=== PATIENT | male | born 1980 | race Caucasian/White ===

== ENCOUNTER 2023-08-23 14:46 | Inpatient (IN) | payer OTHER ==
[2023-08-23 15:55] VITALS: BMI 28.1
[2023-08-23] MEDS ORDERED: ACETAMINOPHEN 325 MG TABLET (FP) PO PRN (18:10)
[2023-08-23] MEDS ORDERED: guaiFENesin 600 MG TABLET.ER (FP) PO PRN (18:10)
[2023-08-23] MEDS ORDERED: MAG HYDROX/AL HYDROX/SIMETH 30 ML UNIT-DOSE CUP PO PRN (18:10)
[2023-08-23] MEDS ORDERED: LOPERAMIDE HCL 2 MG CAPSULE PO PRN (18:10)
[2023-08-23] MEDS ORDERED: NALOXONE HCL 0.4 MG/ML VIAL IM PRN (18:10)
[2023-08-23] MEDS ORDERED: NALOXONE HCL (KLOXXADO) 8 MG SPRAY NS PRN (18:10)
[2023-08-23] MEDS ORDERED: IBUPROFEN 400 MG TABLET (FP) PO PRN (18:10)
[2023-08-23] MEDS ORDERED: MAGNESIUM HYDROX 2400MG/30ML ORAL SUSPENSION 30 ML CUP PO PRN (18:10)
[2023-08-23] MEDS ORDERED: POLYETHYLENE GLYCOL (HEALTHYLAX) 3350 17 GM PACKET PO PRN (18:10)
[2023-08-23] MEDS ORDERED: P-EPHED 60MG/TRIPROLIDI 2.5MG TABLET PO PRN (18:10)
[2023-08-23] MEDS ORDERED: DICYCLOMINE HCL 10 MG CAPSULE PO PRN (18:10)
[2023-08-23] MEDS ORDERED: BENZOCAINE/MENTHOL (CHLORASEPTIC ) LOZENGE MM PRN (18:10)
[2023-08-23] MEDS ORDERED: IBUPROFEN 600 MG TABLET (FP) PO PRN (18:10)
[2023-08-23] MEDS ORDERED: BENZONATATE 200 MG CAPSULE PO PRN (18:10)
[2023-08-23] MEDS ORDERED: ONDANSETRON *ODT* 4 MG TABLET SL PRN (18:10)
[2023-08-23] MEDS ORDERED: BISMUTH SUBSALICYLATE 524 MG/30 ML PO PRN (18:10)
[2023-08-23] MEDS ORDERED: chlordiazePOXIDE HCL 25 MG CAPSULE PO ONE (18:13)
[2023-08-23] MEDS: chlordiazePOXIDE HCL 25 MG CAPSULE PO PRN (20:58)
[2023-08-23] MEDS: THIAMINE HCL 100 MG TABLET (FP) PO SCH (22:16)
[2023-08-23] MEDS: MELATONIN 5 MG TABLETS PO SCH (22:16)
[2023-08-23] MEDS: chlordiazePOXIDE HCL 25 MG CAPSULE PO SCH (22:16)
[2023-08-23] MEDS: levETIRAcetam 500 MG TABLET (FP) PO SCH (22:16)
[2023-08-24] MEDS: chlordiazePOXIDE HCL 25 MG CAPSULE PO SCH ×4 (05:39→22:16)
[2023-08-24] MEDS: PRENATAL VITAMINS W/ FOLIC ACID TABLET (FP) PO SCH (10:09)
[2023-08-24] MEDS: levETIRAcetam 500 MG TABLET (FP) PO SCH ×2 (10:09→22:16)
[2023-08-24] MEDS ORDERED: methaDONE HCL 10 MG TABLET PO ONE (10:40)
[2023-08-24 10:58] LABS: POTASSIUM 4.1 mmol/L (3.5-5.1)
[2023-08-24 11:01] LABS: HEMATOCRIT 41.9 % (35.4-49); HEMOGLOBIN 14.1 GM/dL (11.7-16.9); MCH 30.4 pg (25.7-33.7); MCHC 33.6 g/dl (32.0-35.9); MEAN CELL VOLUME 90.3 fl (80-96); MEAN PLT VOLUME 7.7 fl (7.5-11.1); PLATELET COUNT 246 10^3/uL (134-434); RBC 4.64 M/mm3 (4.00-5.60); RDW 13.5 % (11.9-15.9); WHITE BLOOD COUNT 5.6 K/mm3 (4.0-10.0)
[2023-08-24 11:13] LABS: CALCIUM 9.6 mg/dL (8.5-10.1)
[2023-08-24 11:14] LABS: ALBUMIN 4.1 g/dl (3.4-5.0); BLOOD UREA NITROGEN 12.2 mg/dL (7-18)
[2023-08-24 11:18] LABS: CREATININE 0.9 mg/dL (0.55-1.3)
[2023-08-24 11:20] LABS: BILIRUBIN,TOTAL 0.5 mg/dL (0.2-1)
[2023-08-24 11:23] LABS: TOT PROT 7.4 g/dl (6.4-8.2)
[2023-08-24] MEDS: METHOCARBAMOL 500 MG TABLET PO PRN (17:26)
[2023-08-24] MEDS: FAMOTIDINE 20 MG TABLET PO SCH (22:16)
[2023-08-24] MEDS: THIAMINE HCL 100 MG TABLET (FP) PO SCH (22:16)
[2023-08-24] MEDS: MELATONIN 5 MG TABLETS PO SCH (22:16)
[2023-08-25] MEDS: chlordiazePOXIDE HCL 25 MG CAPSULE PO SCH ×4 (05:21→22:57)
[2023-08-25] MEDS: METHOCARBAMOL 500 MG TABLET PO PRN (05:21)
[2023-08-25] MEDS ORDERED: methaDONE HCL 10 MG TABLET PO SCH (06:00)
[2023-08-25] MEDS: PRENATAL VITAMINS W/ FOLIC ACID TABLET (FP) PO SCH (10:11)
[2023-08-25] MEDS: FAMOTIDINE 20 MG TABLET PO SCH ×2 (10:12→22:58)
[2023-08-25] MEDS: levETIRAcetam 500 MG TABLET (FP) PO SCH ×2 (10:12→22:57)
[2023-08-25] MEDS: chlordiazePOXIDE HCL 25 MG CAPSULE PO PRN (13:16)
[2023-08-25] MEDS ORDERED: LORazepam 2 MG/ML SDV VIAL IM ONE (16:55)
[2023-08-25 17:09] VITALS: RESP 18; TEMP 96.8
[2023-08-25 22:18] VITALS: BP 141/82; PULSE 90
[2023-08-25] MEDS: MELATONIN 5 MG TABLETS PO SCH (22:57)
[2023-08-25] MEDS: THIAMINE HCL 100 MG TABLET (FP) PO SCH (22:58)
[2023-08-26] MEDS ORDERED: chlordiazePOXIDE HCL 10 MG CAPSULE PO PRN
[2023-08-26] MEDS ORDERED: chlordiazePOXIDE HCL 10 MG CAPSULE PO SCH (05:00)
[2023-08-27] MEDS ORDERED: chlordiazePOXIDE HCL 10 MG CAPSULE PO SCH (05:00)
[2023-08-28] MEDS ORDERED: chlordiazePOXIDE HCL 10 MG CAPSULE PO ONE (05:00)
== END 2023-08-25 23:24 | disposition short-term general hospital (02) | DRG 773 ==
LOC: YASAS 14:46 → Y6N 20:07
PROVIDERS: ADMIT Allergy & Immunology; ATTEND Surgery
PROC: HZ2ZZZZ Detoxification Services for Substance Abuse Treatment (ICD-10-PCS; principal; 2023-08-23)
DX: F13.230 Sedative, hypnotic or anxiolytic dependence with withdrawal, uncomplicated (principal); F11.20 Opioid dependence, uncomplicated; F12.20 Cannabis dependence, uncomplicated; F17.290 Nicotine dependence, other tobacco product, uncomplicated; F19.282 Other psychoactive substance dependence with psychoactive substance-induced sleep disorder; F19.280 Other psychoactive substance dependence with psychoactive substance-induced anxiety disorder; F19.24 Other psychoactive substance dependence with psychoactive substance-induced mood disorder; G40.509 Epileptic seizures related to external causes, not intractable, without status epilepticus; Z56.0 Unemployment, unspecified; Z59.01 Sheltered homelessness
CPT/HCPCS: 36415; 80053; 82962; 85027; 86780; 87635; 93005; 93010; Q0162

== ENCOUNTER 2023-08-25 17:27 | Inpatient (IN) | payer OTHER ==
[2023-08-25] MEDS ORDERED: diazePAM CARPU-JECT 10 MG/2 ML DISP.SYRIN IVPUSH ONE (17:56)
[2023-08-25] MEDS ORDERED: diazePAM CARPU-JECT 10 MG/2 ML DISP.SYRIN ONE (18:03)
[2023-08-25] MEDS ORDERED: SODIUM CHLORIDE 0.9% 500 ML INFUS.BAG IV ONE (18:07)
[2023-08-25 18:31] LABS: BASO % 0.6 % (0-2.0); EOS % 3.2 % (0-4.5); HEMATOCRIT 42.6 % (35.4-49); HEMOGLOBIN 14.5 GM/dL (11.7-16.9); LYMPH % 19.9 % (8-40); MCH 30.1 pg (25.7-33.7); MCHC 34.1 g/dl (32.0-35.9); MEAN CELL VOLUME 88.4 fl (80-96); MEAN PLT VOLUME 7.2 fl (7.5-11.1); MONO % 6.2 % (3.8-10.2); NEUT % 70.1 % (42.8-82.8); PLATELET COUNT 243 10^3/uL (134-434); RBC 4.83 M/mm3 (4.00-5.60); RDW 13.8 % (11.9-15.9); WHITE BLOOD COUNT 6.4 K/mm3 (4.0-10.0)
[2023-08-25] MEDS ORDERED: chlordiazePOXIDE HCL 25 MG CAPSULE PO ONE (18:39)
[2023-08-25 18:56] LABS: POTASSIUM 3.8 mmol/L (3.5-5.1)
[2023-08-25 18:58] LABS: BLOOD UREA NITROGEN 14.7 mg/dL (7-18); CALCIUM 10.1 mg/dL (8.5-10.1); MAGNESIUM 1.8 mg/dL (1.8-2.4)
[2023-08-25 18:59] LABS: ALBUMIN 4.1 g/dl (3.4-5.0)
[2023-08-25 19:01] LABS: CREATININE 0.9 mg/dL (0.55-1.3)
[2023-08-25 19:03] LABS: BILIRUBIN,TOTAL 0.4 mg/dL (0.2-1); TOT PROT 7.3 g/dl (6.4-8.2)
[2023-08-25 19:46] LABS: EPI CELLS 22 /uL (0-25.1); HYALINE CASTS 9 /uL (0-3.1); PH,URINE 5.5 (5.0-8.0); URINE APPEARANCE CLEAR; URINE BACTERIA 26 /uL (0-1359); URINE BILIRUBIN NEGATIVE (NEGATIVE); URINE COLOR YELLOW; URINE GLUCOSE (UA) NEGATIVE (NEGATIVE); URINE KETONE 1+ (NEGATIVE); URINE LEUK ESTERASE TRACE (NEGATIVE); URINE NITRITE NEGATIVE (NEGATIVE); URINE PROTEIN NEGATIVE (NEGATIVE); URINE RBC 5 /uL (0-23.9); URINE UROBILINOGEN 0.2 mg/dL (0.2-1.0); URINE WBC 56 /uL (0-25.8)
[2023-08-25] MEDS ORDERED: chlordiazePOXIDE HCL 25 MG CAPSULE PO PRN (21:27)
[2023-08-25] MEDS: chlordiazePOXIDE HCL 25 MG CAPSULE PO SCH (23:03)
[2023-08-25 23:26] VITALS: BMI 27.8
[2023-08-26] MEDS ORDERED: MELATONIN 5 MG TABLETS PO ONE (05:00)
[2023-08-26] MEDS: chlordiazePOXIDE HCL 25 MG CAPSULE PO SCH ×4 (05:14→23:02)
[2023-08-26] MEDS ORDERED: methaDONE HCL 10 MG TABLET PO SCH (06:00)
[2023-08-26 07:38] LABS: HEMATOCRIT 38.7 % (35.4-49); HEMOGLOBIN 13.3 GM/dL (11.7-16.9); MCH 30.8 pg (25.7-33.7); MCHC 34.5 g/dl (32.0-35.9); MEAN CELL VOLUME 89.3 fl (80-96); MEAN PLT VOLUME 7.5 fl (7.5-11.1); PLATELET COUNT 228 10^3/uL (134-434); RBC 4.33 M/mm3 (4.00-5.60); RDW 13.4 % (11.9-15.9); WHITE BLOOD COUNT 6.6 K/mm3 (4.0-10.0)
[2023-08-26 08:02] LABS: CALCIUM 9.1 mg/dL (8.5-10.1)
[2023-08-26 08:03] LABS: ALBUMIN 3.7 g/dl (3.4-5.0); BLOOD UREA NITROGEN 14.9 mg/dL (7-18); MAGNESIUM 1.8 mg/dL (1.8-2.4)
[2023-08-26 08:05] LABS: BILIRUBIN,TOTAL 0.7 mg/dL (0.2-1); TOT PROT 6.7 g/dl (6.4-8.2)
[2023-08-26 08:06] LABS: CREATININE 0.9 mg/dL (0.55-1.3)
[2023-08-26 08:11] LABS: POTASSIUM 3.8 mmol/L (3.5-5.1)
[2023-08-26 08:43] LABS: URINE APPEARANCE CLEAR; URINE BILIRUBIN NEGATIVE (NEGATIVE); URINE COLOR YELLOW; URINE GLUCOSE (UA) NEGATIVE (NEGATIVE); URINE KETONE TRACE (NEGATIVE); URINE LEUK ESTERASE NEGATIVE (NEGATIVE); URINE NITRITE NEGATIVE (NEGATIVE); URINE PROTEIN NEGATIVE (NEGATIVE)
[2023-08-26] MEDS: NICOTINE 7 MG/24 HOURS TOPICAL PATCH TD SCH (10:51)
[2023-08-26] MEDS: ENOXAPARIN NA (PORCINE) 40 MG/0.4 ML DISP.SYRIN SQ SCH (10:51)
[2023-08-26] MEDS ORDERED: ACETAMINOPHEN 500 MG TABLET (FP) PO ONE (14:30)
[2023-08-27] MEDS ORDERED: chlordiazePOXIDE HCL 25 MG CAPSULE PO SCH (05:00)
[2023-08-27 09:24] LABS: ALBUMIN 3.8 g/dl (3.4-5.0)
[2023-08-27 09:25] LABS: BLOOD UREA NITROGEN 12.6 mg/dL (7-18)
[2023-08-27 09:29] LABS: BILIRUBIN,TOTAL 0.6 mg/dL (0.2-1); TOT PROT 6.8 g/dl (6.4-8.2)
[2023-08-27] MEDS ORDERED: LORazepam 1 MG TABLET PO PRN (09:56)
[2023-08-27] MEDS: ENOXAPARIN NA (PORCINE) 40 MG/0.4 ML DISP.SYRIN SQ SCH (09:58)
[2023-08-27] MEDS: NICOTINE 7 MG/24 HOURS TOPICAL PATCH TD SCH (09:58)
[2023-08-27] MEDS ORDERED: LORazepam 2 MG/ML SDV VIAL IVPUSH PRN (10:17)
[2023-08-27] MEDS ORDERED: LORazepam 2 MG TABLET PO SCH (11:00)
[2023-08-27] MEDS: THIAMINE HCL 100 MG TABLET (FP) PO SCH (11:38)
[2023-08-27] MEDS: MULTIVITAMINS (DAILY MVI) TABLET (FP) PO SCH (11:38)
[2023-08-27] MEDS: ACETAMINOPHEN 325 MG TABLET (FP) PO PRN (11:39)
[2023-08-27] MEDS: LORazepam 1 MG TABLET PO SCH ×3 (12:12→23:07)
[2023-08-28] MEDS ORDERED: chlordiazePOXIDE HCL 10 MG CAPSULE PO PRN
[2023-08-28] MEDS: MELATONIN 5 MG TABLETS PO PRN ×2 (00:33→22:13)
[2023-08-28] MEDS ORDERED: chlordiazePOXIDE HCL 10 MG CAPSULE PO SCH (05:00)
[2023-08-28] MEDS: LORazepam 1 MG TABLET PO SCH ×4 (05:08→22:08)
[2023-08-28 07:57] LABS: POTASSIUM 3.8 mmol/L (3.5-5.1)
[2023-08-28 07:59] LABS: ALBUMIN 4.3 g/dl (3.4-5.0); MAGNESIUM 1.9 mg/dL (1.8-2.4)
[2023-08-28 08:01] LABS: EOS % 6.8 % (0-4.5); HEMATOCRIT 42.3 % (35.4-49); HEMOGLOBIN 15.2 GM/dL (11.7-16.9); LYMPH % 33.6 % (8-40); MCH 31.5 pg (25.7-33.7); MCHC 35.9 g/dl (32.0-35.9); MEAN CELL VOLUME 87.8 fl (80-96); MEAN PLT VOLUME 7.6 fl (7.5-11.1); MONO % 7.3 % (3.8-10.2); NEUT % 51.3 % (42.8-82.8); PLATELET COUNT 281 10^3/uL (134-434); RBC 4.82 M/mm3 (4.00-5.60); RDW 13.6 % (11.9-15.9); WHITE BLOOD COUNT 7.4 K/mm3 (4.0-10.0)
[2023-08-28 08:02] LABS: CREATININE 1.1 mg/dL (0.55-1.3)
[2023-08-28 08:04] LABS: TOT PROT 7.5 g/dl (6.4-8.2)
[2023-08-28 08:09] LABS: BILIRUBIN,TOTAL 0.5 mg/dL (0.2-1)
[2023-08-28] MEDS: THIAMINE HCL 100 MG TABLET (FP) PO SCH (09:39)
[2023-08-28] MEDS: NICOTINE 21 MG/24 HOURS TOPICAL PATCH TD SCH (09:39)
[2023-08-28] MEDS: MULTIVITAMINS (DAILY MVI) TABLET (FP) PO SCH (09:39)
[2023-08-28] MEDS: ENOXAPARIN NA (PORCINE) 40 MG/0.4 ML DISP.SYRIN SQ SCH (09:40)
[2023-08-28] MEDS: ACETAMINOPHEN 325 MG TABLET (FP) PO PRN (09:47)
[2023-08-29] MEDS ORDERED: chlordiazePOXIDE HCL 10 MG CAPSULE PO SCH (05:00)
[2023-08-29] MEDS: LORazepam 1 MG TABLET PO SCH ×4 (05:10→22:24)
[2023-08-29 08:17] LABS: POTASSIUM 3.9 mmol/L (3.5-5.1)
[2023-08-29 08:21] LABS: BLOOD UREA NITROGEN 9.3 mg/dL (7-18)
[2023-08-29 08:25] LABS: BILIRUBIN,TOTAL 0.6 mg/dL (0.2-1); TOT PROT 7.1 g/dl (6.4-8.2)
[2023-08-29 09:06] LABS: BASO % 1.2 % (0-2.0); EOS % 5.9 % (0-4.5); HEMATOCRIT 40.8 % (35.4-49); HEMOGLOBIN 13.9 GM/dL (11.7-16.9); MCH 30.9 pg (25.7-33.7); MEAN CELL VOLUME 90.8 fl (80-96); MEAN PLT VOLUME 7.7 fl (7.5-11.1); MONO % 6.1 % (3.8-10.2); NEUT % 54.8 % (42.8-82.8); PLATELET COUNT 241 10^3/uL (134-434); RDW 13.7 % (11.9-15.9); WHITE BLOOD COUNT 5.4 K/mm3 (4.0-10.0)
[2023-08-29] MEDS: ENOXAPARIN NA (PORCINE) 40 MG/0.4 ML DISP.SYRIN SQ SCH (10:22)
[2023-08-29] MEDS: NICOTINE 21 MG/24 HOURS TOPICAL PATCH TD SCH (10:23)
[2023-08-29] MEDS: MULTIVITAMINS (DAILY MVI) TABLET (FP) PO SCH (10:23)
[2023-08-29] MEDS: THIAMINE HCL 100 MG TABLET (FP) PO SCH (10:23)
[2023-08-30] MEDS ORDERED: LORazepam 0.5 MG TABLET PO PRN
[2023-08-30] MEDS: LORazepam 0.5 MG TABLET PO SCH ×4 (04:42→22:22)
[2023-08-30] MEDS ORDERED: chlordiazePOXIDE HCL 10 MG CAPSULE PO ONE (05:00)
[2023-08-30 06:49] VITALS: RESP 18
[2023-08-30 08:25] LABS: BASO % 1.3 % (0-2.0); EOS % 5.8 % (0-4.5); HEMATOCRIT 41.2 % (35.4-49); LYMPH % 19.2 % (8-40); MCH 30.5 pg (25.7-33.7); MCHC 34.1 g/dl (32.0-35.9); MEAN CELL VOLUME 89.6 fl (80-96); MEAN PLT VOLUME 7.5 fl (7.5-11.1); MONO % 6.8 % (3.8-10.2); NEUT % 66.9 % (42.8-82.8); PLATELET COUNT 241 10^3/uL (134-434); RBC 4.59 M/mm3 (4.00-5.60); RDW 13.9 % (11.9-15.9)
[2023-08-30 09:14] LABS: CALCIUM 9.1 mg/dL (8.5-10.1)
[2023-08-30 09:15] LABS: BLOOD UREA NITROGEN 11.4 mg/dL (7-18)
[2023-08-30 09:20] LABS: BILIRUBIN,TOTAL 0.5 mg/dL (0.2-1); TOT PROT 7.1 g/dl (6.4-8.2)
[2023-08-30] MEDS: MULTIVITAMINS (DAILY MVI) TABLET (FP) PO SCH (10:52)
[2023-08-30] MEDS: ENOXAPARIN NA (PORCINE) 40 MG/0.4 ML DISP.SYRIN SQ SCH (10:52)
[2023-08-30] MEDS: NICOTINE 21 MG/24 HOURS TOPICAL PATCH TD SCH (10:52)
[2023-08-30] MEDS: THIAMINE HCL 100 MG TABLET (FP) PO SCH (10:53)
[2023-08-30] MEDS: MELATONIN 5 MG TABLETS PO PRN (22:25)
[2023-08-31] MEDS ORDERED: LORazepam 0.5 MG TABLET PO ONE (05:00)
[2023-08-31 09:58] VITALS: BP 121/89; PULSE 74; TEMP 98.6
[2023-08-31] MEDS: NICOTINE 21 MG/24 HOURS TOPICAL PATCH TD SCH (09:59)
[2023-08-31] MEDS: MULTIVITAMINS (DAILY MVI) TABLET (FP) PO SCH (09:59)
[2023-08-31] MEDS: ENOXAPARIN NA (PORCINE) 40 MG/0.4 ML DISP.SYRIN SQ SCH (09:59)
[2023-08-31] MEDS: THIAMINE HCL 100 MG TABLET (FP) PO SCH (09:59)
== END 2023-08-31 12:45 | disposition home or self-care (01) | DRG 773 ==
LOC: JER 17:27 → JERBED 21:20 → INTOOBSV 21:41 → UNDOADMOB 21:41 → JERBED 21:41 → J7W 22:57 → JERBED 22:57 → J7W 22:57 → OBSVTOIN 08-27 10:30
PROVIDERS: ADMIT Internal Medicine; ATTEND Nurse Practitioner Acute Care
PROC: HZ2ZZZZ Detoxification Services for Substance Abuse Treatment (ICD-10-PCS; principal; 2023-08-25)
DX: F13.939 Sedative, hypnotic or anxiolytic use, unspecified with withdrawal, unspecified (principal); F11.20 Opioid dependence, uncomplicated; R56.9 Unspecified convulsions; F17.210 Nicotine dependence, cigarettes, uncomplicated; M54.89 Other dorsalgia; M54.2 Cervicalgia
CPT/HCPCS: 36415; 70450-TC; 70551-TC; 71045-TC-FY; 80053; 81003; 82550; 83605; 83735; 84100; 84484; 85025; 85027; 87086; 87635; 93005; 93010; 99285-25; G0378